=== PATIENT | female | born 1990 | race American Indian/Alaskan Native ===

== ENCOUNTER 2019-04-24 16:17 | Emergency (ER) | payer SELFPAY ==
[2019-04-24] MEDS ORDERED: Sodium Chloride 0.9% 10 ML Syringe FLUSH PRN (16:25)
[2019-04-24] MEDS: Haloperidol Lactate 5 MG/ML SDV IV ONE ×2 (16:40→16:51)
[2019-04-24] MEDS: Lactated Ringers 1,000 ML IV ONE (16:42)
[2019-04-24 17:13] LABS: BARBITURATE SCREEN,URINE NEGATIVE (NEGATIVE); BENZODIAZEPINES SCREEN,URINE NEGATIVE (NEGATIVE); EDDP,URINE SCREEN NEGATIVE (NEGATIVE); METHAMPHETAMINE SCREEN, URINE POSITIVE (NEGATIVE); TCA SCREEN,URINE NEGATIVE (NEGATIVE); THC SCREEN,URINE 50 NG/ML NEGATIVE (NEGATIVE)
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
[2019-04-24 17:17] VITALS: BP 116/69
[2019-04-24 17:25] LABS: CHLORIDE,CL 106 mmol/L (98-107); SODIUM,NA 142 mmol/L (136-145)
[2019-04-24 17:40] LABS: ANION GAP 18.8 mmol/L (10-20)
[2019-04-24 17:42] LABS: ACETAMINOPHEN 0 ug/ml (10-30)
== END 2019-04-24 18:15 ==
LOC: VM.ED 16:17
DX: F15.10 Other stimulant abuse, uncomplicated (principal); F10.129 Alcohol abuse with intoxication, unspecified; Y90.6 Blood alcohol level of 120-199 mg/100 ml
CPT/HCPCS: 80053; 80305-QW; 83735; 85025; 96361; 96374; 99283-GF; 99285-25; G0480; J1630; J7120

== ENCOUNTER 2020-10-28 03:36 | Emergency (ER) | payer SELFPAY ==
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
[2020-10-28 04:10] VITALS: BP 135/83; PULSE 110
== END 2020-10-28 04:30 | disposition home or self-care (01) ==
LOC: VM.ED 03:36
DX: S00.33XA Contusion of nose, initial encounter (principal); Z88.0 Allergy status to penicillin; Y04.0XXA Assault by unarmed brawl or fight, initial encounter
CPT/HCPCS: 99283

== ENCOUNTER 2021-05-05 23:25 | Emergency (ER) | payer SELFPAY ==
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
== END 2021-05-05 23:56 | disposition home or self-care (01) ==
LOC: VM.ED 23:25
DX: Z00.00 Encounter for general adult medical examination without abnormal findings (principal)
CPT/HCPCS: 99283

== ENCOUNTER 2021-05-22 14:16 | Emergency (ER) | payer MEDICAID ==
--- NOTE | 2021-05-22 14:31 | EDM.PDOCBH ---
ED HPI GENERAL MEDICAL PROBLEM - General Chief Complaint: Behavioral/Psych Stated Complaint: BEHAVIORAL Time Seen by Provider: 05/22/21 14:16 Source of Information: Reports: Patient, Police History Limitations: Reports: Other (appears to be under the influence of some substance) - History of Present Illness INITIAL COMMENTS - FREE TEXT/NARRATIVE: Patient is brought in Police for alerted mental status, possible drug use and concern for safety. Patient is well known to law enforcement for substance abuse. They encountered her earlier today for this and she was sitting in the middle of the road. She was dropped off at a location of her choosing. The police were called again for her wandering through businesses. She asked to come here and so they dropped her off. No charges or warrants. She denies drug use today but claims drug use most days. Has not pain, would like her glucose checked. Denies hallucinations. Hasn't eaten today. Onset: Unknown/Unsure - Related Data Allergies Allergy/AdvReac Type Severity Reaction Status Date / Time Penicillins AdvReac Intermediate Hives Verified 05/22/21 14:19 Home Meds: Home Meds . 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: Social & Family History - Recreational Drug Use Recreational Drug Type: Reports: Methamphetamine ED ROS GENERAL - Review of Systems Review Of Systems: Unable To Obtain Reason Not Obtained: substance abuse, but denies any specific complaints ED EXAM, BEHAVIORAL HEALTH - Physical Exam Exam: See Below Exam Limited By: Intoxication General Appearance: Alert, No Apparent Distress (answers questions when asked, does not volunteer infomration, cooperative with exam, ) Eye Exam: Bilateral Eye: EOMI, PERRL Ears: Normal External Exam Throat/Mouth: Normal Inspection, Normal Lips, Normal Oropharynx, Normal Voice Head: Atraumatic Neck: Normal Inspection, Supple Respiratory/Chest: No Respiratory Distress, Lungs Clear, Normal Breath Sounds, No Accessory Muscle Use, Chest Non-Tender Cardiovascular: Normal Peripheral Pulses, No Murmur, Tachycardia Extremities: Other (bug bites on her feet. NOne infected) Psychiatric: Alert, Oriented COURSE, BEHAVIORAL HEALTH COMP - Course Orders, Labs, Meds: Active Orders 24 hr Category Date Time Status Blood Glucose Check, Bedside [RC] ONETIME Care 05/22/21 14:23 Active Laboratory Tests 05/22/21 Range/Units 14:28 POC Glucose 82 (70-99) mg/dL Medications Discontinued Medications Generic Name Dose Route Start Last Admin Trade Name Adela PRN Reason Stop Dose Admin Olanzapine 10 mg 05/22/21 14:24 Olanzapine 10 Mg Tab PO 05/22/21 14:25 ONETIME ONE Re-Assessment/Re-Exam: glucose was 84. give a sandwich and juice, offered zyprex. She is looking for a ride. Does not have shoes. 14:56 patient requests to leave, walking around the department. ate and drank well. notified PD she is leaving Departure - Departure Time of Disposition: 14:56 Disposition: Home, Self-Care 01 Clinical Impression: Methamphetamine abuse - Discharge Information *PRESCRIPTION DRUG MONITORING PROGRAM REVIEWED*: Not Applicable *COPY OF PRESCRIPTION DRUG MONITORING REPORT IN PATIENT PAUL: Not Applicable Instructions: Methamphetamines Use Disorder Referrals: Leonard Underwood MD [Primary Care Provider] - Forms: ED Department Discharge Additional Instructions: seek help to stop abusing substances - My Orders Last 24 Hours: My Active Orders 05/22/21 14:23 Blood Glucose Check, Bedside [RC] ONETIME - Assessment/Plan Last 24 Hours: My Active Orders 05/22/21 14:23 Blood Glucose Check, Bedside [RC] ONETIME
[2021-05-22] MEDS: OLANZapine 10 MG Tab PO ONE (15:20)
[2021-05-22 16:00] VITALS: BP 116/81; PULSE 103
== END 2021-05-22 15:05 | disposition home or self-care (01) ==
LOC: SUPCPDRO 14:16 → VM.ED 14:16
DX: F15.10 Other stimulant abuse, uncomplicated (principal); S90.869A Insect bite (nonvenomous), unspecified foot, initial encounter; W57.XXXA Bitten or stung by nonvenomous insect and other nonvenomous arthropods, initial encounter
CPT/HCPCS: 82947; 99283; 99284

== ENCOUNTER 2021-06-06 03:53 | Emergency (ER) | payer MEDICAID ==
--- NOTE | 2021-06-06 04:15 | EDM.PDOC ---
ED HPI GENERAL MEDICAL PROBLEM - General Chief Complaint: Behavioral/Psych Stated Complaint: Paranoid Time Seen by Provider: 06/06/21 03:53 Source of Information: Reports: Patient History Limitations: Reports: No Limitations - History of Present Illness INITIAL COMMENTS - FREE TEXT/NARRATIVE: Pt. presents to ER, transported by police. Pt. was loitering/trespassing in a building and is homeless. She states that she has not place to stay. Pt. admits to feeling paranoid. She has a history of meth use in the past, the last time was yesterday. Denies any drug or alcohol use today. Pt. unwilling to discuss if she is suicidal or homicidal. She states that she has not eaten for several days. She presents to ER without shoes on her feet. Pt. offers no medical complaints. She denies any chest pain, shortness of breath, lightheadedness, fever, chills, or abdominal discomfort. Pt. is quite resistive to questioning from ER staff. Onset: Today Onset Date: 06/06/21 Location: Reports: Generalized - Related Data Allergies Allergy/AdvReac Type Severity Reaction Status Date / Time Penicillins AdvReac Intermediate Hives Verified 06/06/21 04:14 Home Meds: Home Meds . 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 GENERAL - Review of Systems Review Of Systems: See Below Constitutional: Reports: No Symptoms HEENT: Reports: No Symptoms Respiratory: Reports: No Symptoms Cardiovascular: Reports: No Symptoms Endocrine: Reports: No Symptoms GI/Abdominal: Reports: No Symptoms : Reports: No Symptoms Musculoskeletal: Reports: No Symptoms Skin: Reports: No Symptoms Neurological: Reports: No Symptoms Psychiatric: Reports: Anxiety Hematologic/Lymphatic: Reports: No Symptoms Immunologic: Reports: No Symptoms ED EXAM, GENERAL - Physical Exam Exam: See Below Exam Limited By: No Limitations General Appearance: Alert, WD/WN, Anxious Eye Exam: Bilateral Eye: EOMI, Normal Inspection Throat/Mouth: Normal Inspection, Normal Lips, Normal Teeth, Normal Gums, Normal Oropharynx, Normal Voice, No Airway Compromise Head: Atraumatic, Normocephalic Neck: Normal Inspection, Supple, Non-Tender Respiratory/Chest: No Respiratory Distress, Lungs Clear, No Accessory Muscle Use, Chest Non-Tender Cardiovascular: Normal Peripheral Pulses, Regular Rate, Rhythm, No Edema, No JVD Peripheral Pulses: 4+: Radial (L) GI/Abdominal: Soft, Non-Tender, No Distention, No Mass (Female) Exam: Deferred Rectal (Female) Exam: Deferred Back Exam: Normal Inspection, Full Range of Motion Extremities: Normal Inspection, Normal Range of Motion, Non-Tender, No Pedal Edema, Normal Capillary Refill Neurological: Alert, CN II-XII Intact, Normal Cognition, Normal Gait, Slow to Respond Psychiatric: Normal Affect, Flat Affect Skin Exam: Warm, Dry Course - Vital Signs Last Recorded V/S: Last Vital Signs Temp 36.9 C 06/06/21 04:16 Pulse 67 06/06/21 04:16 Resp 14 06/06/21 04:16 BP 116/81 06/06/21 04:16 Pulse Ox 99 06/06/21 04:16 - Orders/Labs/Meds Labs: Laboratory Tests 06/06/21 06/06/21 06/06/21 Range/Units 04:25 04:25 07:08 WBC 5.3 (4.0-10.0) x10^3/uL RBC 4.28 (4.00-5.50) x10^6/uL Hgb 12.0 D (12.0-16.0) g/dL Hct 35.2 (33.0-47.0) % MCV 82.2 D (78.0-93.0) fL MCH 28.0 (26.0-32.0) pg MCHC 34.1 (32.0-36.0) g/dL RDW Coeff of Jordy 14.8 (10.0-15.0) % Plt Count 239 D (130-400) x10^3/uL Neut % (Auto) 54.5 (50.0-80.0) % Lymph % (Auto) 35.4 (25.0-50.0) % [place] % (Auto) 7.6 (2.0-11.0) % Eos % (Auto) 2.3 (0.0-4.0) % Baso % (Auto) 0.2 (0.2-1.2) % Sodium 143 (136-145) mmol/L Potassium 3.7 (3.5-5.1) mmol/L Chloride 106 (98-107) mmol/L Carbon Dioxide 29 (21-32) mmol/L Anion Gap 11.7 (5-15) mmol/L BUN 12 (7-18) mg/dL Creatinine 0.9 (0.55-1.02) mg/dL Est Cr Clr Drug Dosing 86.34 mL/min Estimated GFR (MDRD) > 60 Glucose 86 (70-99) mg/dL Calcium 8.7 (8.5-10.1) mg/dL Corrected Calcium 8.8 (8.5-10.1) mg/dL Total Bilirubin 0.7 (0.2-1.0) mg/dL AST 39 H (15-37) U/L ALT 60 H (14-59) U/L Alkaline Phosphatase 74 (46-116) U/L Total Protein 7.7 (6.4-8.2) g/dL Albumin 3.9 (3.4-5.0) g/dL Globulin 3.8 Albumin/Globulin Ratio 1.03 TSH, Ultra Sensitive 2.155 (0.358-3.74) uIU/mL Urine Color Yellow (YELLOW) Urine Appearance Clear (CLEAR) Urine pH 6.0 (5.0-8.0) Ur Specific [place] >=1.030 Urine Protein Trace H (NEGATIVE) mg/dL Urine Glucose (UA) Negative (NEGATIVE) mg/dL Urine Ketones Negative (NEGATIVE) mg/dL Urine Occult Blood Negative (NEGATIVE) Urine Nitrite Negative (NEGATIVE) Urine Bilirubin Small H (NEGATIVE) Urine Urobilinogen 1.0 (0.2) EU/dL Ur Leukocyte Esterase Negative (NEGATIVE) Urine RBC 0-5 (NOT SEEN) /HPF Urine WBC 0-5 (NOT SEEN) /HPF Ur Squamous Epith Cells Occasional H (NOT SEEN) /HPF Urine Bacteria Rare (NOT SEEN) /HPF Urine Mucus Rare H (NOT SEEN) /LPF Urine HCG, Qual (NEGATIVE) Urine Opiates Screen (NEGATIVE) Ur Buprenorphine Scrn (NEGATIVE) Ur Oxycodone Screen (NEGATIVE) Urine Methadone Screen (NEGATIVE) Ur Barbiturates Screen (NEGATIVE) Ur Phencyclidine Scrn (NEGATIVE) Ur Amphetamine Screen (NEGATIVE) U Methamphetamines Scrn (NEGATIVE) Urine MDMA Screen (NEGATIVE) U Benzodiazepines Scrn (NEGATIVE) U Cocaine Metab Screen (NEGATIVE) U Marijuana (THC) Screen (NEGATIVE) Ethyl Alcohol < 3 (0-3) mg/dL 06/06/21 06/06/21 Range/Units 07:08 07:08 WBC (4.0-10.0) x10^3/uL RBC (4.00-5.50) x10^6/uL Hgb (12.0-16.0) g/dL Hct (33.0-47.0) % MCV (78.0-93.0) fL MCH (26.0-32.0) pg MCHC (32.0-36.0) g/dL RDW Coeff of Jordy (10.0-15.0) % Plt Count (130-400) x10^3/uL Neut % (Auto) (50.0-80.0) % Lymph % (Auto) (25.0-50.0) % [place] % (Auto) (2.0-11.0) % Eos % (Auto) (0.0-4.0) % Baso % (Auto) (0.2-1.2) % Sodium (136-145) mmol/L Potassium (3.5-5.1) mmol/L Chloride (98-107) mmol/L Carbon Dioxide (21-32) mmol/L Anion Gap (5-15) mmol/L BUN (7-18) mg/dL Creatinine (0.55-1.02) mg/dL Est Cr Clr Drug Dosing mL/min Estimated GFR (MDRD) Glucose (70-99) mg/dL Calcium (8.5-10.1) mg/dL Corrected Calcium (8.5-10.1) mg/dL Total Bilirubin (0.2-1.0) mg/dL AST (15-37) U/L ALT (14-59) U/L Alkaline Phosphatase (46-116) U/L Total Protein (6.4-8.2) g/dL Albumin (3.4-5.0) g/dL Globulin Albumin/Globulin Ratio TSH, Ultra Sensitive (0.358-3.74) uIU/mL Urine Color (YELLOW) Urine Appearance (CLEAR) Urine pH (5.0-8.0) Ur Specific [place] Urine Protein (NEGATIVE) mg/dL Urine Glucose (UA) (NEGATIVE) mg/dL Urine Ketones (NEGATIVE) mg/dL Urine Occult Blood (NEGATIVE) Urine Nitrite (NEGATIVE) Urine Bilirubin (NEGATIVE) Urine Urobilinogen (0.2) EU/dL Ur Leukocyte Esterase (NEGATIVE) Urine RBC (NOT SEEN) /HPF Urine WBC (NOT SEEN) /HPF Ur Squamous Epith Cells (NOT SEEN) /HPF Urine Bacteria (NOT SEEN) /HPF Urine Mucus (NOT SEEN) /LPF Urine HCG, Qual Negative (NEGATIVE) Urine Opiates Screen Negative (NEGATIVE) Ur Buprenorphine Scrn Negative (NEGATIVE) Ur Oxycodone Screen Negative (NEGATIVE) Urine Methadone Screen Negative (NEGATIVE) Ur Barbiturates Screen Negative (NEGATIVE) Ur Phencyclidine Scrn Negative (NEGATIVE) Ur Amphetamine Screen Positive H (NEGATIVE) U Methamphetamines Scrn Positive H (NEGATIVE) Urine MDMA Screen Positive H (NEGATIVE) U Benzodiazepines Scrn Negative (NEGATIVE) U Cocaine Metab Screen Negative (NEGATIVE) U Marijuana (THC) Screen Positive H (NEGATIVE) Ethyl Alcohol (0-3) mg/dL Departure - Departure Time of Disposition: 09:05 Disposition: DC/Tfer to Psych Hosp/Unit 65 Clinical Impression: Methamphetamine abuse, MDMA abuse - Discharge Information Referrals: Leonard Underwood MD [Primary Care Provider] - Forms: ED Department Discharge Sepsis Event Note (ED) - Focused Exam Vital Signs: Vital Signs Temp Pulse Resp BP Pulse Ox 06/06/21 04:16 36.9 C 67 14 116/81 99 - Problem List Review Problem List Initiated/Reviewed/Updated: Yes - Assessment/Plan Plan: [facility] screener Russell was contacted. Pt. was resistive to phone screening. Discussed the case at length with Russell as well as with Dr. Shantal Pimentel. Pt. stated to both myself and screener that she was actively suicidal but would not discuss any plan. Pt. will need to be admitted at [facility] for her safety. Pt. will be transported via [facility]. All questions were answered.
[2021-06-06 04:21] VITALS: BP 116/81; PULSE 67
[2021-06-06 05:38] LABS: ANION GAP 11.7 mmol/L (5-15); CHLORIDE,CL 106 mmol/L (98-107); SODIUM,NA 143 mmol/L (136-145)
[2021-06-06 07:17] LABS: BARBITURATE SCREEN,URINE NEGATIVE (NEGATIVE)
[2021-06-06 07:18] LABS: BENZODIAZEPINES SCREEN,URINE NEGATIVE (NEGATIVE); METHAMPHETAMINE SCREEN, URINE POSITIVE (NEGATIVE); THC SCREEN,URINE 50 NG/ML POSITIVE (NEGATIVE)
== END 2021-06-06 09:47 ==
LOC: VM.ED 03:53 → SUPCPDRO 03:53 → VM.ED 09:47
DX: F15.10 Other stimulant abuse, uncomplicated (principal); Z88.0 Allergy status to penicillin
CPT/HCPCS: 36415; 80053; 80305-QW; 80307; 81001; 81025; 84443; 85025; 99284; 99285

== ENCOUNTER 2021-10-11 17:53 | Emergency (ER) | payer MEDICAID ==
[2021-10-11] MEDS: OLANZapine 5 MG Tab.DIS PO ONE (18:19)
[2021-10-11 18:21] VITALS: BP 98/62; PULSE 88
[2021-10-11 18:40] LABS: CHLORIDE,CL 106 mmol/L (98-107); SODIUM,NA 139 mmol/L (136-145)
[2021-10-11 18:43] LABS: BARBITURATE SCREEN,URINE NEGATIVE (NEGATIVE)
[2021-10-11 18:44] LABS: BENZODIAZEPINES SCREEN,URINE NEGATIVE (NEGATIVE); BUPRENORPHINE SCREEN,URINE NEGATIVE (NEGATIVE); METHAMPHETAMINE SCREEN, URINE POSITIVE (NEGATIVE); THC SCREEN,URINE 50 NG/ML POSITIVE (NEGATIVE)
[2021-10-11 18:52] LABS: ACETAMINOPHEN 0 ug/ml (10-30); ANION GAP 12.8 mmol/L (5-15)
--- NOTE | 2021-10-11 19:02 | EDM.PDOC ---
ED HPI GENERAL MEDICAL PROBLEM - General Chief Complaint: Behavioral/Psych Stated Complaint: aggitation Time Seen by Provider: 10/11/21 17:55 Source of Information: Reports: Patient History Limitations: Reports: No Limitations - History of Present Illness INITIAL COMMENTS - FREE TEXT/NARRATIVE: Patient is brought to the emergency department today by the local correction and [facility] departments for concerns of agitation reported hallucinations and hearing voices. This patient was placed into the correction a couple of days ago. She has a history of methamphetamine and ecstasy abuse. She has been hospitalized at the [facility] in the past for the similar situation. 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 The patient reports that since she has been in the correction she has developed hearing voices and seeing people that arent there. They are not telling her to harm herself. She denies suicidal ideation. Denies homicidal ideation. She otherwise is without complaints. She has been on the phone most of the day with the [facility] to the emergency department to see if we can get her back on her chronic medications. 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 - Physical Exam Exam: See Below Text/Narrative:: The patient arrived she is alert appropriate no confusion. When we are not in the room she is sitting there pleasantly watching TV in no distress. When we are in the room she suddenly is hearing voices and seeing things that were not there previously. Although this resolves when we leave the room. There is no homicidal or suicidal ideation. She becomes somewhat agitated and anxious when caregivers are in the room but when we are not in the room this is not clinically evident. Exam Limited By: No Limitations General Appearance: Alert, WD/WN Ears: Normal External Exam Nose: Normal Inspection Throat/Mouth: Normal Inspection Head Exam: Atraumatic, Normocephalic Neck: Normal Inspection, Supple, Non-Tender, Full Range of Motion Respiratory/Chest: No Respiratory Distress, Lungs Clear, Normal Breath Sounds, No Accessory Muscle Use, Chest Non-Tender Cardiovascular: Normal Peripheral Pulses, Regular Rate, Rhythm GI/Abdominal: Normal Bowel Sounds, Soft (Female) Exam: Deferred Rectal (Female) Exam: Deferred Neuro Exam (Abbreviated): Alert, Oriented, CN II-XII Intact, Normal Cognition, No Motor/Sensory Deficits Back Exam: Normal Inspection Extremities: Normal Inspection Psychiatric: Anxious (Although no suicidal or homicidal ideation. She reports hallucinations and delusions although they are not clinically evident when no one is in the room.) Skin Exam: Warm, Dry, Intact, Normal Color Course - Vital Signs Last Recorded V/S: Last Vital Signs Temp 98.1 F 10/11/21 18:20 Pulse 88 10/11/21 18:20 Resp 14 10/11/21 18:20 BP 98/62 10/11/21 18:20 Pulse Ox 98 10/11/21 18:20 - Orders/Labs/Meds Labs: Laboratory Tests 10/11/21 10/11/21 10/11/21 Range/Units 18:05 18:05 18:05 WBC 7.5 (4.0-10.0) x10^3/uL RBC 4.52 (4.00-5.50) x10^6/uL Hgb 12.6 (12.0-16.0) g/dL Hct 37.5 (33.0-47.0) % MCV 83.0 (78.0-93.0) fL MCH 27.9 (26.0-32.0) pg MCHC 33.6 (32.0-36.0) g/dL RDW Coeff of Jordy 14.9 (10.0-15.0) % Plt Count 242 (130-400) x10^3/uL Immature Gran % (Auto) 0.10 (0.00-0.43) % Neut % (Auto) 71.3 (50.0-80.0) % Lymph % (Auto) 22.1 L (25.0-50.0) % [place] % (Auto) 5.7 (2.0-11.0) % Eos % (Auto) 0.5 (0.0-4.0) % Baso % (Auto) 0.3 (0.2-1.2) % Neut # (Auto) 5.3 (1.8-7.7) x10^3/uL Lymph # (Auto) 1.7 (1.0-4.8) x10^3/uL [place] # (Auto) 0.4 (0.0-0.8) x10^3/uL Eos # (Auto) 0.0 (0.0-0.5) x10^3/uL Baso # (Auto) 0.0 (0.0-0.2) x10^3/uL Immature Gran # (Auto) 0.01 (0.00-0.07) x10^3/uL Sodium 139 (136-145) mmol/L Potassium 3.8 (3.5-5.1) mmol/L Chloride 106 (98-107) mmol/L Carbon Dioxide 24 (21-32) mmol/L Anion Gap 12.8 (5-15) mmol/L BUN 8 (7-18) mg/dL Creatinine 0.7 (0.55-1.02) mg/dL Est Cr Clr Drug Dosing TNP Estimated GFR (MDRD) > 60 Glucose 154 H (70-99) mg/dL Calcium 8.8 (8.5-10.1) mg/dL Corrected Calcium 9.2 (8.5-10.1) mg/dL Magnesium 2.0 (1.8-2.4) mg/dL Total Bilirubin 0.4 (0.2-1.0) mg/dL AST 47 H (15-37) U/L ALT 83 H (14-59) U/L Alkaline Phosphatase 73 (46-116) U/L C-Reactive Protein < 0.2 (<=0.9) mg/dL Total Protein 7.3 (6.4-8.2) g/dL Albumin 3.5 (3.4-5.0) g/dL Globulin 3.8 Albumin/Globulin Ratio 0.92 TSH, Ultra Sensitive 0.268 L (0.358-3.74) uIU/mL Urine Color (YELLOW) Urine Appearance (CLEAR) Urine pH (5.0-8.0) Ur Specific [place] Urine Protein (NEGATIVE) mg/dL Urine Glucose (UA) (NEGATIVE) mg/dL Urine Ketones (NEGATIVE) mg/dL Urine Occult Blood (NEGATIVE) Urine Nitrite (NEGATIVE) Urine Bilirubin (NEGATIVE) Urine Urobilinogen (0.2) EU/dL Ur Leukocyte Esterase (NEGATIVE) Urine RBC (NOT SEEN) /HPF Urine WBC (NOT SEEN) /HPF Ur Squamous Epith Cells (NOT SEEN) /HPF Urine Bacteria (NOT SEEN) /HPF Urine Mucus (NOT SEEN) /LPF Urine HCG, Qual (NEGATIVE) Salicylates 0.5 L (2.8-20(Therapeutic)) mg/dL Urine Opiates Screen (NEGATIVE) Ur Buprenorphine Scrn (NEGATIVE) Ur Oxycodone Screen (NEGATIVE) Urine Methadone Screen (NEGATIVE) Acetaminophen 0 L (10-30) ug/ml Ur Barbiturates Screen (NEGATIVE) Ur Phencyclidine Scrn (NEGATIVE) Ur Amphetamine Screen (NEGATIVE) U Methamphetamines Scrn (NEGATIVE) Urine MDMA Screen (NEGATIVE) U Benzodiazepines Scrn (NEGATIVE) U Cocaine Metab Screen (NEGATIVE) U Marijuana (THC) Screen (NEGATIVE) Ethyl Alcohol < 3 (0-3) mg/dL SARS CoV-2 RNA Rapid CHRISTIE (NEGATIVE) 10/11/21 10/11/21 10/11/21 Range/Units 18:31 18:31 18:31 WBC (4.0-10.0) x10^3/uL RBC (4.00-5.50) x10^6/uL Hgb (12.0-16.0) g/dL Hct (33.0-47.0) % MCV (78.0-93.0) fL MCH (26.0-32.0) pg MCHC (32.0-36.0) g/dL RDW Coeff of Jordy (10.0-15.0) % Plt Count (130-400) x10^3/uL Immature Gran % (Auto) (0.00-0.43) % Neut % (Auto) (50.0-80.0) % Lymph % (Auto) (25.0-50.0) % [place] % (Auto) (2.0-11.0) % Eos % (Auto) (0.0-4.0) % Baso % (Auto) (0.2-1.2) % Neut # (Auto) (1.8-7.7) x10^3/uL Lymph # (Auto) (1.0-4.8) x10^3/uL [place] # (Auto) (0.0-0.8) x10^3/uL Eos # (Auto) (0.0-0.5) x10^3/uL Baso # (Auto) (0.0-0.2) x10^3/uL Immature Gran # (Auto) (0.00-0.07) x10^3/uL Sodium (136-145) mmol/L Potassium (3.5-5.1) mmol/L Chloride (98-107) mmol/L Carbon Dioxide (21-32) mmol/L Anion Gap (5-15) mmol/L BUN (7-18) mg/dL Creatinine (0.55-1.02) mg/dL Est Cr Clr Drug Dosing Estimated GFR (MDRD) Glucose (70-99) mg/dL Calcium (8.5-10.1) mg/dL Corrected Calcium (8.5-10.1) mg/dL Magnesium (1.8-2.4) mg/dL Total Bilirubin (0.2-1.0) mg/dL AST (15-37) U/L ALT (14-59) U/L Alkaline Phosphatase (46-116) U/L C-Reactive Protein (<=0.9) mg/dL Total Protein (6.4-8.2) g/dL Albumin (3.4-5.0) g/dL Globulin Albumin/Globulin Ratio TSH, Ultra Sensitive (0.358-3.74) uIU/mL Urine Color Yellow (YELLOW) Urine Appearance Slightly cloudy H (CLEAR) Urine pH 5.5 (5.0-8.0) Ur Specific [place] >=1.030 Urine Protein Negative (NEGATIVE) mg/dL Urine Glucose (UA) 100 H (NEGATIVE) mg/dL Urine Ketones Trace H (NEGATIVE) mg/dL Urine Occult Blood Negative (NEGATIVE) Urine Nitrite Negative (NEGATIVE) Urine Bilirubin Negative (NEGATIVE) Urine Urobilinogen 0.2 (0.2) EU/dL Ur Leukocyte Esterase Moderate H (NEGATIVE) Urine RBC 0-5 (NOT SEEN) /HPF Urine WBC 20-30 H (NOT SEEN) /HPF Ur Squamous Epith Cells Few H (NOT SEEN) /HPF Urine Bacteria Occasional H (NOT SEEN) /HPF Urine Mucus Few H (NOT SEEN) /LPF Urine HCG, Qual Negative (NEGATIVE) Salicylates (2.8-20(Therapeutic)) mg/dL Urine Opiates Screen Negative (NEGATIVE) Ur Buprenorphine Scrn Negative (NEGATIVE) Ur Oxycodone Screen Negative (NEGATIVE) Urine Methadone Screen Negative (NEGATIVE) Acetaminophen (10-30) ug/ml Ur Barbiturates Screen Negative (NEGATIVE) Ur Phencyclidine Scrn Negative (NEGATIVE) Ur Amphetamine Screen Positive H (NEGATIVE) U Methamphetamines Scrn Positive H (NEGATIVE) Urine MDMA Screen Negative (NEGATIVE) U Benzodiazepines Scrn Negative (NEGATIVE) U Cocaine Metab Screen Negative (NEGATIVE) U Marijuana (THC) Screen Positive H (NEGATIVE) Ethyl Alcohol (0-3) mg/dL SARS CoV-2 RNA Rapid CHRISTIE (NEGATIVE) 10/11/21 Range/Units 18:31 WBC (4.0-10.0) x10^3/uL RBC (4.00-5.50) x10^6/uL Hgb (12.0-16.0) g/dL Hct (33.0-47.0) % MCV (78.0-93.0) fL MCH (26.0-32.0) pg MCHC (32.0-36.0) g/dL RDW Coeff of Jordy (10.0-15.0) % Plt Count (130-400) x10^3/uL Immature Gran % (Auto) (0.00-0.43) % Neut % (Auto) (50.0-80.0) % Lymph % (Auto) (25.0-50.0) % [place] % (Auto) (2.0-11.0) % Eos % (Auto) (0.0-4.0) % Baso % (Auto) (0.2-1.2) % Neut # (Auto) (1.8-7.7) x10^3/uL Lymph # (Auto) (1.0-4.8) x10^3/uL [place] # (Auto) (0.0-0.8) x10^3/uL Eos # (Auto) (0.0-0.5) x10^3/uL Baso # (Auto) (0.0-0.2) x10^3/uL Immature Gran # (Auto) (0.00-0.07) x10^3/uL Sodium (136-145) mmol/L Potassium (3.5-5.1) mmol/L Chloride (98-107) mmol/L Carbon Dioxide (21-32) mmol/L Anion Gap (5-15) mmol/L BUN (7-18) mg/dL Creatinine (0.55-1.02) mg/dL Est Cr Clr Drug Dosing Estimated GFR (MDRD) Glucose (70-99) mg/dL Calcium (8.5-10.1) mg/dL Corrected Calcium (8.5-10.1) mg/dL Magnesium (1.8-2.4) mg/dL Total Bilirubin (0.2-1.0) mg/dL AST (15-37) U/L ALT (14-59) U/L Alkaline Phosphatase (46-116) U/L C-Reactive Protein (<=0.9) mg/dL Total Protein (6.4-8.2) g/dL Albumin (3.4-5.0) g/dL Globulin Albumin/Globulin Ratio TSH, Ultra Sensitive (0.358-3.74) uIU/mL Urine Color (YELLOW) Urine Appearance (CLEAR) Urine pH (5.0-8.0) Ur Specific [place] Urine Protein (NEGATIVE) mg/dL Urine Glucose (UA) (NEGATIVE) mg/dL Urine Ketones (NEGATIVE) mg/dL Urine Occult Blood (NEGATIVE) Urine Nitrite (NEGATIVE) Urine Bilirubin (NEGATIVE) Urine Urobilinogen (0.2) EU/dL Ur Leukocyte Esterase (NEGATIVE) Urine RBC (NOT SEEN) /HPF Urine WBC (NOT SEEN) /HPF Ur Squamous Epith Cells (NOT SEEN) /HPF Urine Bacteria (NOT SEEN) /HPF Urine Mucus (NOT SEEN) /LPF Urine HCG, Qual (NEGATIVE) Salicylates (2.8-20(Therapeutic)) mg/dL Urine Opiates Screen (NEGATIVE) Ur Buprenorphine Scrn (NEGATIVE) Ur Oxycodone Screen (NEGATIVE) Urine Methadone Screen (NEGATIVE) Acetaminophen (10-30) ug/ml Ur Barbiturates Screen (NEGATIVE) Ur Phencyclidine Scrn (NEGATIVE) Ur Amphetamine Screen (NEGATIVE) U Methamphetamines Scrn (NEGATIVE) Urine MDMA Screen (NEGATIVE) U Benzodiazepines Scrn (NEGATIVE) U Cocaine Metab Screen (NEGATIVE) U Marijuana (THC) Screen (NEGATIVE) Ethyl Alcohol (0-3) mg/dL SARS CoV-2 RNA Rapid CHRISTIE Negative (NEGATIVE) Meds: Medications Discontinued Medications Generic Name Dose Route Start Last Admin Trade Name Freq PRN Reason Stop Dose Admin Olanzapine 10 mg 10/11/21 18:10 10/11/21 18:19 Olanzapine 5 Mg Tab.Dis PO 10/11/21 18:11 10 mg ONETIME ONE Administration - Re-Assessments/Exams Free Text/Narrative Re-Assessment/Exam: I did discuss with Marshall the screener at the [facility] at length this patient. He has been on the phone with her most of the day. He is well aware of this patient. 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 Marshall from the [facility] also wonders if there is not some aspect of her just wanting to get out of correction. I do not disagree with this as she is not having any problems when no one is in the room and it is only clinically evident when someone is in the room and we have observed her in the emergency department. She was given Zyprexa 10 mg orally. Rest of her laboratory evaluation is rather unremarkable. Her Covid is negative. She was discharged back to the correction where she was The patients urine is somewhat infectious although she is not symptomatic. We will culture her urine at this time and treat if clinically evident. Urine culture at 24 hours is mixed amber. 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 Continue suicide watch. Start back on home medications. Abilify 10mg day. Melatonin 6mg bedtime. Hydroxyzine 50mg tablet every 6hrs for anxiety. She may refuse this medication is she doesn't feel anxious. Return to the ED if new or worsening symptoms. Follow up with [facility] as needed during correction time and upon discharge as well. RXs have been sent to [facility].
== END 2021-10-11 19:08 ==
LOC: VM.ED 17:53
DX: F15.151 Other stimulant abuse with stimulant-induced psychotic disorder with hallucinations (principal); R44.0 Auditory hallucinations; Z72.0 Tobacco use; Z88.0 Allergy status to penicillin; Z20.822 Contact with and (suspected) exposure to COVID-19
CPT/HCPCS: 36415; 80053; 80143; 80179; 80305-QW; 80307; 81001; 81025; 83735; 84443; 85025; 86140; 87086; 99285; A9270-GY; U0002

== ENCOUNTER 2021-12-14 04:25 | Emergency (ER) | payer BC, MEDICAID ==
[2021-12-14 05:04] VITALS: BP 114/79; PULSE 60
[2021-12-14 05:19] LABS: BARBITURATE SCREEN,URINE NEGATIVE (NEGATIVE); BENZODIAZEPINES SCREEN,URINE NEGATIVE (NEGATIVE); BUPRENORPHINE SCREEN,URINE NEGATIVE (NEGATIVE); METHAMPHETAMINE SCREEN, URINE NEGATIVE (NEGATIVE); THC SCREEN,URINE 50 NG/ML NEGATIVE (NEGATIVE)
[2021-12-14 05:38] LABS: CHLORIDE,CL 107 mmol/L (98-107); SODIUM,NA 141 mmol/L (136-145)
[2021-12-14 05:39] LABS: ANION GAP 11.1 mmol/L (5-15)
[2021-12-14] MEDS: Take Home: Nitrofurantoin Monohydrate/Macrocrystalline 100 MG, 2 Cap Pack PO ONE (05:58)
== END 2021-12-14 06:02 ==
LOC: VM.ED 04:25
DX: N39.0 Urinary tract infection, site not specified (principal); R74.8 Abnormal levels of other serum enzymes; R44.3 Hallucinations, unspecified; Z88.0 Allergy status to penicillin; Z20.822 Contact with and (suspected) exposure to COVID-19
CPT/HCPCS: 36415; 80053; 80305-QW; 81001; 81025; 83735; 84100; 84443; 85025; 87086; 99284; 99285; A9270-GY; U0002

== ENCOUNTER 2022-02-10 18:26 | Emergency (ER) | payer BC, MEDICAID ==
[2022-02-10 19:52] VITALS: BP 127/81; PULSE 107
== END 2022-02-10 18:41 ==
LOC: VM.ED 18:26
DX: Z02.89 Encounter for other administrative examinations (principal); Z88.0 Allergy status to penicillin
CPT/HCPCS: 99283

== ENCOUNTER 2022-07-03 05:10 | Emergency (ER) | payer OTHER, MEDICAID ==
[2022-07-03] MEDS ORDERED: Sodium Chloride 0.9% 1,000 ML IV ONE ×2 (05:15→06:45)
[2022-07-03] MEDS ORDERED: fentaNYL 50 MCG/ML SDV IVPUSH ONE (05:16)
[2022-07-03] MEDS ORDERED: fentaNYL 50 MCG/ML SDV ONE (05:19)
[2022-07-03 05:57] LABS: CHLORIDE,CL 106 mmol/L (98-107); SODIUM,NA 141 mmol/L (136-145)
[2022-07-03 05:58] LABS: ANION GAP 19.5 mmol/L (5-15); ESTIMATED GFR 119 mL/min (>=60)
[2022-07-03 06:07] LABS: PTT,PARTIAL THROMBOPLSTIN TIME 26.8 SEC (20.5-30.9)
[2022-07-03] MEDS ORDERED: LORazepam 2 MG/ML SDV IVPUSH ONE (06:20)
[2022-07-03] MEDS ORDERED: LORazepam 2 MG/ML SDV ONE (06:24)
== END 2022-07-03 06:55 | disposition short-term general hospital (02) ==
LOC: VM.ED 05:10
DX: S09.90XA Unspecified injury of head, initial encounter (principal); R41.82 Altered mental status, unspecified; Z88.0 Allergy status to penicillin; Z72.0 Tobacco use; V09.20XA Pedestrian injured in traffic accident involving unspecified motor vehicles, initial encounter; Y92.410 Unspecified street and highway as the place of occurrence of the external cause
CPT/HCPCS: 36415; 70450; 71045; 72125; 72170; 73110-LT; 80053; 80307; 83605; 85025; 85610; 85730; 86140; 96374; 96375; 99284; 99285-25; J2060; J3010; J7030

== ENCOUNTER 2022-12-25 18:26 | Emergency (ER) | payer SELFPAY ==
[2022-12-25 19:58] VITALS: BP 144/92; PULSE 82
== END 2022-12-25 19:05 ==
LOC: VM.ED 18:26
DX: F15.129 Other stimulant abuse with intoxication, unspecified (principal); Z88.0 Allergy status to penicillin
CPT/HCPCS: 99282; 99283